=== PATIENT | male | born 2000 | race Caucasian/White ===

== ENCOUNTER 2021-05-03 17:34 | Emergency (ER) | payer OTHER ==
[~2021-05-03] VITALS: Ht 177.8 cm; Wt 65.0 kg
[2021-05-03 19:18] LABS: BASOPHILS % (AUTO) 1 % (0-1); EOSINOPHILS % (AUTO) 3 % (1-7); LYMPHOCYTES % (AUTO) 23 % (22-44); MEAN CORPUSCULAR HEMOGLOBIN 31.4 pg (27.5-34.5); MEAN CORPUSCULAR HGB CONC 35.5 g/dL (33.2-36.2); MEAN PLATELET VOLUME 6.7 fL (7.4-10.4); MONOCYTES % (AUTO) 9 % (2-9); NEUTROPHILS % (AUTO) 65 % (42-75); PLATELET COUNT 208 x10^3/uL (130-400); RED BLOOD COUNT 4.89 x10^6/uL (4.38-5.82)
[2021-05-03 19:29] LABS: ALANINE AMINOTRANSFERASE 22 U/L (12-78); ALBUMIN 3.8 g/dL (3.4-5.0); CALCIUM 8.7 mg/dL (8.5-10.1); CHLORIDE 110 mmol/L (98-107); CREATININE 0.91 mg/dL (0.7-1.3)
[2021-05-03 19:35] LABS: ALKALINE PHOSPHATASE 53 U/L (45-117); ANION GAP 4 mmol/L (5-15); BILIRUBIN,TOTAL 0.9 mg/dL (0.2-1.0); TOTAL PROTEIN 6.4 g/dL (6.4-8.2)
[2021-05-03 20:51] VITALS: BP 99/55
--- NOTE | 2021-05-03 21:09 | NUR ---
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
== END 2021-05-03 21:48 | disposition home or self-care (01) ==
LOC: ED 21:20
DX: K29.00 Acute gastritis without bleeding (principal); R10.13 Epigastric pain; R42 Dizziness and giddiness; R94.31 Abnormal electrocardiogram [ECG] [EKG]; F17.200 Nicotine dependence, unspecified, uncomplicated; Z90.89 Acquired absence of other organs
CPT/HCPCS: 36415; 80053; 82962; 83690; 85025; 93005; 99284

== ENCOUNTER 2021-05-16 17:13 | Emergency (ER) | payer OTHER ==
[~2021-05-16] VITALS: Ht 177.8 cm; Wt 63.8 kg
[2021-05-16 17:52] VITALS: BP 111/57
== END 2021-05-16 20:32 | disposition home or self-care (01) ==
LOC: ED 18:23
DX: R11.2 Nausea with vomiting, unspecified (principal); Z76.0 Encounter for issue of repeat prescription
CPT/HCPCS: 99281

== ENCOUNTER 2021-05-31 22:22 | Emergency (ER) | payer OTHER ==
[~2021-05-31] VITALS: Ht 165.1 cm; Wt 75.0 kg
--- NOTE | 2021-05-31 22:35 | NUR ---
EKG DONE IN TRIAGE
[2021-05-31 23:17] LABS: BASOPHILS % (AUTO) 1 % (0-1); EOSINOPHILS % (AUTO) 4 % (1-7); LYMPHOCYTES % (AUTO) 27 % (22-44); MEAN CORPUSCULAR HEMOGLOBIN 30.7 pg (27.5-34.5); MEAN CORPUSCULAR HGB CONC 35.1 g/dL (33.2-36.2); MONOCYTES % (AUTO) 7 % (2-9); NEUTROPHILS % (AUTO) 62 % (42-75); PLATELET COUNT 199 x10^3/uL (130-400); RED BLOOD COUNT 4.92 x10^6/uL (4.38-5.82); RED CELL DISTRIBUTION WIDTH 12.7 % (9.4-14.8)
[2021-05-31 23:30] LABS: ALANINE AMINOTRANSFERASE 15 U/L (12-78); ALBUMIN 3.4 g/dL (3.4-5.0); ANION GAP 3 mmol/L (5-15); CALCIUM 8.5 mg/dL (8.5-10.1); CHLORIDE 112 mmol/L (98-107); CREATININE 0.77 mg/dL (0.7-1.3)
[2021-05-31 23:32] LABS: ALKALINE PHOSPHATASE 53 U/L (45-117); BILIRUBIN,TOTAL 0.7 mg/dL (0.2-1.0); TOTAL PROTEIN 6.1 g/dL (6.4-8.2)
[2021-06-01 00:38] VITALS: BP 108/59
== END 2021-06-01 01:12 | disposition home or self-care (01) ==
LOC: ED 06-01 01:03
DX: K29.00 Acute gastritis without bleeding (principal); F17.200 Nicotine dependence, unspecified, uncomplicated
CPT/HCPCS: 36415; 80053; 83690; 85025; 93005; 99284